=== PATIENT | male | born 1980 | race African-American/Black ===

== ENCOUNTER → 2016-09-30 | Outpatient (CLI) | payer MEDICAID | END | disposition home or self-care (01) | LOC: SLAB 20:12 | DX: G47.9 Sleep disorder, unspecified (principal) | CPT/HCPCS: 95810 ==

== ENCOUNTER → 2016-11-11 | Outpatient (CLI) | payer MEDICAID | END | disposition home or self-care (01) | LOC: SLAB 20:00 | PROVIDERS: ATTEND Family Medicine | DX: G47.33 Obstructive sleep apnea (adult) (pediatric) (principal) | CPT/HCPCS: 95811 ==